=== PATIENT | female | born 1975 | race Caucasian/White ===

== ENCOUNTER 2016-07-12 09:04 | Day surgery (SDC) | payer OTHER ==
[~2016-07-12] VITALS: Ht 157.5 cm; Wt 69.9 kg
[~2016-07-12 09:04] MED LIST: AXERT12.5 MG PO; CLARITIN,ALAVAR10 MG PO; COMPAZINE10 MG PO; FLONASE ALLERG9.9 ML BOTH NARES; MAGNESIUM400 M1 PO; MICROZIDE12.5 M1 PO; PROBIOTIC1 EAC3 PO; ULTRAM50 MG PO; WELLBUTRIN XL150 MG PO
== END 2016-07-12 12:58 | disposition home or self-care (01) ==
LOC: PAIN 09:04 → SDC 09:30 → PAIN 09:30
DX: M47.892 Other spondylosis, cervical region (principal); M54.2 Cervicalgia; F41.1 Generalized anxiety disorder; M79.1 Myalgia; I10 Essential (primary) hypertension; E04.1 Nontoxic single thyroid nodule
CPT/HCPCS: J1030; J2250; J3010; S0020